=== PATIENT | female | born 1990 | race Caucasian/White ===

== ENCOUNTER 2019-06-08 12:08 | Emergency (ER) | payer OTHER ==
[~2019-06-08] VITALS: Ht 162.6 cm; Wt 49.9 kg
[2019-06-08 12:22] VITALS: BP 105/56
[2019-06-08] MEDS ORDERED: InsuLIN R (HUMAN) 100 UNITS in SODIUM CHL 0.9% 99 ML IV SCH (12:40)
[2019-06-08] MEDS ORDERED: DEXTROSE (50%) 50ML SYRG IV PRN (12:45)
[2019-06-08] MEDS ORDERED: cefTRIAXone 1GM/50ML D5W 50 ML IV ONE (12:45)
[2019-06-08] MEDS ORDERED: SODIUM CHLORIDE 0.9% 1,000 ML IV ONE (12:45)
[2019-06-08 13:04] LABS: Basophils # (auto) 0 uL; Basophils % (auto) 0.4 % (0.0-2.0); Eosinophils # (auto) 0 uL; Eosinophils % (auto) 0.6 % (0.0-7.0); Hemoglobin 14.3 g/dL (12.2-16.2); Lymphocytes # (auto) 2.3 uL; Lymphocytes % (auto) 31.9 % (10.0-50.0); Mean Corpuscular Hgb Conc. 33.9 g/dL (32.0-36.0); Mean Corpuscular Volume 91.5 fL (80.0-100.0); Monocytes # (auto) 0.3 uL; Monocytes % (auto) 4.8 % (0.0-12.0); Neutrophils # (auto) 4.5 uL; Neutrophils % (auto) 62.3 % (37.0-80.0); Nucleated Red Blood Cells % 0.1 %; Platelet Count (auto) 146 10^3/uL (140-450); Red Cell Distribution Width 13.2 % (11.8-14.3); White Blood Cell 7.3 10^3/uL (4.4-10.8)
[2019-06-08 13:23] LABS: Calcium 8.9 mg/dL (8.5-10.1); Potassium 3.6 mmol/L (3.5-5.1)
[2019-06-08 13:25] LABS: Bilirubin, Total 0.3 mg/dL (0.2-1.0)
[2019-06-08] MEDS ORDERED: ACCU-CHEK COMFORT CURVE STRIP VI SCH (13:30)
== END 2019-06-08 14:02 | disposition left against medical advice (07) ==
LOC: ER 12:16
DX: R56.9 Unspecified convulsions (principal); Z53.21 Procedure and treatment not carried out due to patient leaving prior to being seen by health care provider
CPT/HCPCS: 36415; 80053; 84702; 85025

== ENCOUNTER 2021-12-21 01:56 | Emergency (ER) | payer OTHER ==
[~2021-12-21] VITALS: Ht 157.5 cm; Wt 49.9 kg
[2021-12-21 02:01] VITALS: BP 112/58
[2021-12-21 03:04] LABS: Basophils # (auto) 0.4 10 ^3/uL (0-0.2); Basophils % (auto) 5.2 % (0.0-2.0); Eosinophils # (auto) 0 10 ^3/uL (0-0.8); Eosinophils % (auto) 0.5 % (0.0-7.0); Hematocrit 43.5 % (36.0-46.0); Hemoglobin 15.2 g/dL (12.2-16.2); Lymphocytes # (auto) 2.8 10 ^3/uL (0.4-5.4); Lymphocytes % (auto) 40.4 % (10.0-50.0); Mean Corpuscular Hemoglobin 31.4 pg (28.0-32.0); Mean Corpuscular Hgb Conc. 34.9 g/dL (32.0-36.0); Mean Corpuscular Volume 90.1 fL (80.0-100.0); Monocytes # (auto) 0.7 10 ^3/uL (0-1.3); Monocytes % (auto) 10.7 % (0.0-12.0); Neutrophils % (auto) 43.2 % (37.0-80.0); Nucleated Red Blood Cells % 0.1 %; Red Blood Cells 4.83 10^6/uL (4.0-5.20); Red Cell Distribution Width 12.4 % (11.8-14.3)
[2021-12-21 03:28] LABS: Albumin 3.5 g/dL (3.4-5.0); BUN/Creatinine Ratio 6.3; Calcium 9.2 mg/dL (8.5-10.1); Potassium 3.9 mmol/L (3.5-5.1)
[2021-12-21 03:30] LABS: Bilirubin, Total 0.3 mg/dL (0.2-1.0); Total Protein 7.8 g/dL (6.4-8.2)
[2021-12-21 04:17] LABS: Urine Bacteria FEW /hpf (None Seen); Urine Blood Negative /uL (Negative); Urine Specific Gravity 1.009 (1.001-1.035); Urine WBC 1 /hpf (0 - 5)
== END 2021-12-21 05:14 | disposition left against medical advice (07) ==
LOC: ER 01:56 → EDBD 01:56 → ER 05:14
DX: R10.31 Right lower quadrant pain (principal); Z53.21 Procedure and treatment not carried out due to patient leaving prior to being seen by health care provider
CPT/HCPCS: 36415; 80053; 81001; 83690; 84702; 85025

== ENCOUNTER 2023-02-09 13:00 | Emergency (ER) | payer OTHER ==
[~2023-02-09] VITALS: Ht 160 cm; Wt 63.0 kg
[2023-02-09] MEDS ORDERED: SODIUM CHLORIDE 0.9% 1,000 ML IV ONE (13:15)
[2023-02-09] MEDS ORDERED: LORazepam 2MG/ML-1ML VIAL ONE (13:19)
[2023-02-09] MEDS ORDERED: LORazepam 2MG/ML-1ML VIAL IV ONE (13:30)
[2023-02-09 13:44] LABS: Basophils # (auto) 0 10 ^3/uL (0-0.2); Basophils % (auto) 0.6 % (0.0-2.0); Eosinophils # (auto) 0.1 10 ^3/uL (0-0.8); Eosinophils % (auto) 0.8 % (0.0-7.0); Hematocrit 42.1 % (36.0-46.0); Hemoglobin 13.9 g/dL (12.2-16.2); Lymphocytes % (auto) 39.2 % (10.0-50.0); Mean Corpuscular Hemoglobin 30.6 pg (28.0-32.0); Mean Corpuscular Hgb Conc. 32.9 g/dL (32.0-36.0); Mean Corpuscular Volume 92.8 fL (80.0-100.0); Monocytes # (auto) 0.4 10 ^3/uL (0-1.3); Monocytes % (auto) 5.6 % (0.0-12.0); Neutrophils # (auto) 4.2 10 ^3/uL (1.6-8.6); Neutrophils % (auto) 53.8 % (37.0-80.0); Nucleated Red Blood Cells % 0.1 %; Red Blood Cells 4.53 10^6/uL (4.0-5.20); Red Cell Distribution Width 13.2 % (11.8-14.3); White Blood Cell 7.8 10^3/uL (4.4-10.8)
[2023-02-09 14:04] LABS: Albumin 3.9 g/dL (3.4-5.0); Calcium 8.9 mg/dL (8.5-10.1); Potassium 3.9 mmol/L (3.5-5.1)
[2023-02-09 14:07] LABS: BUN/Creatinine Ratio 7.9 (10.0-20.0); Bilirubin, Total 0.4 mg/dL (0.2-1.0); Total Protein 7.8 g/dL (6.4-8.2)
[2023-02-09 16:38] LABS: Urine Bacteria NONE SEEN /hpf (None Seen); Urine Blood 3+ /uL (Negative); Urine Specific Gravity 1.006 (1.001-1.035); Urine WBC 1 /hpf (0 - 5)
[2023-02-09 17:02] LABS: Amphetamine Screen, Urine NEGATIVE (NEGATIVE); Barbiturate Scree,Urine NEGATIVE (NEGATIVE); Benzodiazephine Screen, Urine NEGATIVE (NEGATIVE); Cannabinoid Screen, Urine NEGATIVE (NEGATIVE)
[2023-02-09 17:14] LABS: Alcohol, Urine < 3.0 mg/dL (0-10); Cocaine Screen, Urine NEGATIVE (NEGATIVE); Opiate Scree,Urine NEGATIVE (NEGATIVE); Phencyclidine Screen, Urine NEGATIVE (NEGATIVE)
[2023-02-09] MEDS ORDERED: ACETAMINOPHEN 325 MG TAB PO ONE (21:00)
[2023-02-09 21:27] VITALS: BP 99/60
== END 2023-02-09 21:47 | disposition short-term general hospital (02) ==
LOC: EDBD 13:00 → ER 13:00
DX: G40.A09 Absence epileptic syndrome, not intractable, without status epilepticus (principal); G45.9 Transient cerebral ischemic attack, unspecified; R10.11 Right upper quadrant pain; R47.01 Aphasia; R10.2 Pelvic and perineal pain
CPT/HCPCS: 36415; 70450; 74176; 76705; 80053; 80307; 81001; 81025; 83690; 84702; 85025; 96361; 96365; 96375; 99291; J1953; J2060; J7030; J7060

== ENCOUNTER 2023-02-14 22:42 | Emergency (ER) | payer OTHER ==
[~2023-02-14] VITALS: Ht 160 cm; Wt 59.1 kg
[2023-02-14 23:37] LABS: Basophils # (auto) 0 10 ^3/uL (0-0.2); Basophils % (auto) 0.4 % (0.0-2.0); Eosinophils # (auto) 0.1 10 ^3/uL (0-0.8); Eosinophils % (auto) 0.9 % (0.0-7.0); Hematocrit 39.8 % (36.0-46.0); Hemoglobin 13.6 g/dL (12.2-16.2); Lymphocytes # (auto) 3.4 10 ^3/uL (0.4-5.4); Lymphocytes % (auto) 38.7 % (10.0-50.0); Mean Corpuscular Hemoglobin 31.4 pg (28.0-32.0); Mean Corpuscular Hgb Conc. 34.1 g/dL (32.0-36.0); Mean Corpuscular Volume 92.2 fL (80.0-100.0); Monocytes # (auto) 0.6 10 ^3/uL (0-1.3); Monocytes % (auto) 7.2 % (0.0-12.0); Neutrophils # (auto) 4.6 10 ^3/uL (1.6-8.6); Neutrophils % (auto) 52.8 % (37.0-80.0); Nucleated Red Blood Cells % 0.1 %; Red Blood Cells 4.32 10^6/uL (4.0-5.20); Red Cell Distribution Width 13.2 % (11.8-14.3); White Blood Cell 8.7 10^3/uL (4.4-10.8)
[2023-02-14 23:44] LABS: Albumin 3.7 g/dL (3.4-5.0); BUN/Creatinine Ratio 7.9 (10.0-20.0); Calcium 8.4 mg/dL (8.5-10.1); Magnesium 2.1 mg/dL (1.6-2.6); Potassium 3.7 mmol/L (3.5-5.1)
[2023-02-14 23:47] LABS: Acetaminophen 23.9 ug/mL (10-30); Bilirubin, Total 0.1 mg/dL (0.2-1.0); Salicylate < 1.7 mg/dL (2.8-20.0); Total Protein 7.7 g/dL (6.4-8.2)
[2023-02-14] MEDS ORDERED: LORazepam 2MG/ML-1ML VIAL ONE (23:52)
[2023-02-15] MEDS ORDERED: LORazepam 2MG/ML-1ML VIAL IV ONE
[2023-02-15 10:56] VITALS: BP 104/56
== END 2023-02-15 11:09 | disposition short-term general hospital (02) ==
LOC: EDBD 22:42 → ER 22:42
DX: R56.9 Unspecified convulsions (principal); R73.9 Hyperglycemia, unspecified; E87.8 Other disorders of electrolyte and fluid balance, not elsewhere classified; E83.51 Hypocalcemia; F32.9 Major depressive disorder, single episode, unspecified; Z20.822 Contact with and (suspected) exposure to COVID-19
CPT/HCPCS: 36415; 70450; 80053; 80320; 80329; 83735; 85025; 87426; 96374; 99291; J1953; J2060; J7060

== ENCOUNTER 2024-05-27 14:09 | Inpatient (IN) | payer OTHER ==
[~2024-05-27] VITALS: Ht 170.2 cm; Wt 72.7 kg
[2024-05-27] MEDS: SODIUM CHLORIDE 0.9% 1,000 ML IV ONE ×4 (14:15→14:31)
[2024-05-27 14:30] VITALS: PULSE 130; RESP 14; O2SAT 98
[2024-05-27] MEDS: levETIRAcetam 1000 mg/100ml 100 ML IV ONE (14:37)
[2024-05-27] MEDS: cefTRIAXone 1GM/50ML D5W 50 ML IV ONE (14:43)
[2024-05-27] MEDS: ACETAMINOPHEN 325 MG TAB PO ONE (14:45)
[2024-05-27 15:04] LABS: Basophils # (auto) 0 10 ^3/uL (0-0.2); Basophils % (auto) 0.2 % (0.0-2.0); Eosinophils # (auto) 0 10 ^3/uL (0-0.8); Eosinophils % (auto) 0.2 % (0.0-7.0); Hematocrit 38.4 % (36.0-46.0); Hemoglobin 13.4 g/dL (12.2-16.2); Lymphocytes # (auto) 2.3 10 ^3/uL (0.4-5.4); Lymphocytes % (auto) 16.8 % (10.0-50.0); Mean Corpuscular Hemoglobin 31.8 pg (28.0-32.0); Mean Corpuscular Hgb Conc. 34.8 g/dL (32.0-36.0); Mean Corpuscular Volume 91.4 fL (80.0-100.0); Monocytes # (auto) 0.8 10 ^3/uL (0-1.3); Neutrophils # (auto) 10.6 10 ^3/uL (1.6-8.6); Neutrophils % (auto) 76.8 % (37.0-80.0); Platelet Count (auto) 210 10^3/uL (140-450); Red Cell Distribution Width 12.3 % (11.8-14.3); White Blood Cell 13.8 10^3/uL (4.4-10.8)
[2024-05-27 15:09] LABS: Chloride 110 mmol/L (98-107); Potassium 3.7 mmol/L (3.5-5.1); Sodium 141 mmol/L (136-145)
[2024-05-27 15:10] LABS: Anion Gap 9 (5-15); Calcium 9.5 mg/dL (8.7-10.4); Carbon Dioxide 22 mmol/L (20-31)
[2024-05-27 15:15] LABS: BUN/Creatinine Ratio 7.2 (10.0-20.0); Blood Urea Nitrogen 7 mg/dL (9-23); Glucose 108 mg/dL (74-106)
[2024-05-27 16:30] LABS: Urine Bacteria None Seen /hpf (None Seen)
[2024-05-27 17:13] LABS: Urine Blood Negative /uL (Negative); Urine Clarity Clear (Clear); Urine Color Colorless (Yellow); Urine Protein, UAD Negative (Negative); Urine Specific Gravity 1.004 (1.001-1.035); Urine Urobilinogen Normal (Negative); Urine WBC 1 /hpf (0 - 5)
[2024-05-27 19:35] VITALS: TEMP 98.2
[2024-05-27 20:53] VITALS: PULSE 120; RESP 20; O2SAT 93
[2024-05-27] MEDS ORDERED: DOCUSATE SOD 100 MG CAP PO PRN (22:00)
[2024-05-27] MEDS ORDERED: HYDROcodone-ACET 5/325MG TAB PO PRN (22:00)
[2024-05-27] MEDS ORDERED: ACETAMINOPHEN 325 MG TAB PO PRN (22:00)
[2024-05-27] MEDS ORDERED: ONDANSETRON HCL 4 MG/2 ML VIAL IV PRN (22:00)
[2024-05-27] MEDS: levETIRAcetam 1000 mg/100ml 100 ML IV SCH (22:24)
[2024-05-27] MEDS: SODIUM CHLOR 0.9% PF (SALINE LOCK) 10ML VIAL/SYR IV SCH (22:25)
[2024-05-27] MEDS ORDERED: NITROGLYCERIN 0.4 MG SL TAB SL PRN (23:15)
[2024-05-27] MEDS ORDERED: MORPHINE SULFATE INJ 2 MG/ml SYRG IV PRN (23:15)
[2024-05-28 03:04] LABS: Basophils # (auto) 0 10 ^3/uL (0-0.2); Basophils % (auto) 0.2 % (0.0-2.0); Eosinophils # (auto) 0 10 ^3/uL (0-0.8); Eosinophils % (auto) 0.3 % (0.0-7.0); Lymphocytes # (auto) 3.1 10 ^3/uL (0.4-5.4); Mean Corpuscular Hemoglobin 31.8 pg (28.0-32.0); Mean Corpuscular Volume 90.8 fL (80.0-100.0); Monocytes # (auto) 1.2 10 ^3/uL (0-1.3); Monocytes % (auto) 9.6 % (0.0-12.0); Neutrophils # (auto) 8.1 10 ^3/uL (1.6-8.6); Neutrophils % (auto) 64.9 % (37.0-80.0); Platelet Count (auto) 200 10^3/uL (140-450); Red Blood Cells 4.08 10^6/uL (4.0-5.20); Red Cell Distribution Width 12.3 % (11.8-14.3); White Blood Cell 12.4 10^3/uL (4.4-10.8)
[2024-05-28 03:22] LABS: Alanine Aminotransferase 16 U/L (7-40); Alkaline Phosphatase 97 U/L (46-116); Anion Gap 7 (5-15); Aspartate Aminotransferase 13 U/L (13-40); Bilirubin, Total 0.4 mg/dL (0.2-1.0); Calcium 9.1 mg/dL (8.7-10.4); Carbon Dioxide 22 mmol/L (20-31); Chloride 111 mmol/L (98-107); Glucose 95 mg/dL (74-106); Potassium 3.6 mmol/L (3.5-5.1); Sodium 140 mmol/L (136-145); Total Protein 6.9 g/dL (5.7-8.2)
[2024-05-28 03:42] LABS: BUN/Creatinine Ratio 6.6 (10.0-20.0); Blood Urea Nitrogen < 5 mg/dL (9-23)
[2024-05-28 08:17] VITALS: BP 117/74; PULSE 98; RESP 21; O2SAT 97
[2024-05-28] MEDS ORDERED: cefTRIAXone 1GM/50ML D5W 50 ML IV SCH (09:00)
[2024-05-28] MEDS ORDERED: SODIUM CHLORIDE 0.9% 1,000 ML IV SCH (12:00)
== END 2024-05-28 08:14 | disposition left against medical advice (07) | DRG 101 ==
LOC: EDBD 14:09 → ER 14:09 → TELE 23:07
PROVIDERS: ADMIT Nurse Practitioner Family; ATTEND Nurse Practitioner Family
DX: G40.909 Epilepsy, unspecified, not intractable, without status epilepticus (principal); N39.0 Urinary tract infection, site not specified; D72.829 Elevated white blood cell count, unspecified; Z53.29 Procedure and treatment not carried out because of patient's decision for other reasons; Z91.199 Patient's noncompliance with other medical treatment and regimen due to unspecified reason; Z79.899 Other long term (current) drug therapy
CPT/HCPCS: 36415; 70450; 80048; 80053; 81001; 83605; 84702; 85025; 96365; 96367; 96368; 99291; G0378

== ENCOUNTER 2024-09-14 04:58 | Emergency (ER) | payer OTHER, MEDICAID ==
[~2024-09-14] VITALS: Ht 167.6 cm; Wt 63.6 kg
--- NOTE | 2024-09-14 07:00 | ED.PDOC ---
Psychiatric HPI Comments 34 year old female presents to the ED with chief complaint of anxiety. Patient reports that she has been experiencing recent bouts of depression, anxiety, and some SI for the past few days. Patient relays that she has not attempted to commit suicide in quite a few years now and has no plan as of now. Patient states she is from her , but her children live with her. Patient notes her children are with their father at this time while she is in the ED. Patient reports she is taking Lamictal. Patient denies any HI, VH, AH, or plan. Chief Complaint: Anxiety Time Seen by MD: 06:55 Primary Care Provider: UNKNOWN Reviewed Notes: Nurses Notes, Medications, Allergies Information Source: Patient Mode of Arrival: EMS Severity: Able to Care for Self, Able to Control Self Severity of Pain: None Severity of Mental Status: Moderate Severity of Symptoms: Moderate Timing: Days Duration: Since onset Prehospital treatment: None Presents with: Depression, Anxiety, Suicidal Ideation Ingestion: None Circumstance: None Current substance abuse: None Stressors: Divorce History of: Depression, Anxiety Past Medical History PAST MEDICAL HISTORY: Anxiety, Depression, Seizures Past Medical History (Other): Pseudoseizures Surgical History: Denies all surgeries SUPERVISOR FINISHING History: Denies all SUPERVISOR FINISHING Hx Family History Family History: Reviewed,noncontributory to illness, Unknown Social History Smoker: Non-Smoker Alcohol: Denies ETOH Use Drugs: Denies Drug Use Lives In: Home Constitutional: denies: chills, diaphoresis, fatigue, fever, malaise, sweats, weakness, others EENTM: denies: blurred vision, double vision, ear bleeding, ear discharge, ear drainage, ear pain, ear ringing, eye pain, eye redness, hearing loss, mouth pain, mouth swelling, nasal discharge, nose bleeding, nose congestion, nose pain, photophobia, tearing, throat pain, throat swelling, voice changes, others Respiratory: denies: cough, hemoptysis, orthopnea, SOB at rest, shortness of breath, SOB with excertion, stridor, wheezing, others Cardiovascular: denies: chest pain, dizzy spells, diaphoresis, Dyspnea on exertion, edema, irregular heart beat, left arm pain, lightheadedness, palpitations, PND, syncope, others Gastrointestinal: denies: abdomen distended, abdominal pain, blood streaked bowels, constipated, diarrhea, dysphagia, difficulty swallowing, hematemesis, melena, nausea, poor appetite, poor fluid intake, rectal bleeding, rectal pain, vomiting, others Genitourinary: denies: abnormal vagina bleeding, burning, dyspareunia, dysuria, flank pain, frequency, hematuria, incontinence, pain, , vagina discharge, urgency, others Neurological: denies: dizziness, fainting, headache, left sided numbness, left sided weakness, numbness, paresthesia, pre-existing deficit, right sided numbness, right sided weakness, seizure, speech problems, tingling, tremors, weakness, others Musculoskeletal: denies: back pain, gout, joint pain, joint swelling, muscle pain, muscle stiffness, neck pain, others Integumetry: denies: bruises, change in color, change in hair/nails, dryness, laceration, lesions, lumps, rash, wounds, others Allergic/Immunocompromised: denies: Difficulty Healing, Frequent Infections, Hives, Itching, others Hematologic/Lymphatic: denies: anemia, blood clots, easy bleeding, easy bruising, swollen glands, others Endocrine: denies: excessive hunger, excessive sweating, excessive thirst, excessive urination, flushing, intolerance to cold, intolerance to heat, unexplained weight gain, unexplained weight loss, others Psychiatric: reports: anxiety, depression, suicidal; denies: bipolar disorder, hopeless, panic disorder, schizophrenia, sleepless, others All Other Systems: Reviewed and Negative Physical Exam General Appearance: Moderate Distress, Normal HEENT: Normal ENT Inspection, PERRL/EOMI Neck: Full Range of Motion, Non-Tender, Normal, Normal Inspection Respiratory: Chest Non-Tender, Lungs Clear, No Accessory Muscle Use, No Respiratory Distress, Normal Breath Sounds Cardiovascular: No Edema, No JVD, No Murmur, No Gallop, Normal Peripheral Pulses, Regular Rate/Rhythm Breast Exam: Deferred Gastrointestinal: No Organomegaly, Non Tender, No Pulsatile Mass, Normal Bowel Sounds, Soft Genitalia: Deferred Pelvic: Deferred Rectal: Deferred Extremities: No calf tenderness, Normal capillary refill, Normal inspection, Normal range of motion, Non-tender, No pedal edema Musculoskeletal : Apperance: Normal Neurologic: Alert, analytical laboratory technician II-XII nml as Tested, No Motor Deficits, Normal Affect, Normal Mood, No Sensory Deficits Cerebellar Function: NOT DONE Reflexes: NOT DONE Skin: Dry, Normal Color, Warm Peripheral Pulses: 3+ Radial (R), 3+ Radial (L) Lymphatic: No Adenopathy Was a procedure done? Was a procedure done?: No Psych Differential Dx Psych. Differential Dx: Anxiety, Depression, Suicidal X-Ray, Labs, Meds, VS Vital Signs Date Time Temp Pulse Resp B/P (MAP) Pulse Ox O2 Delivery O2 Flow Rate FiO2 09/14/24 05:05 98.6 130 27 121/71 (88) 100 Patient alert. History of psychiatric illness. She is depressed. Vitals stable. Answering all questions. Moving all extremities. She has not harmed herself. Reviewed her previous history. Medically cleared. Psychiatric evaluation. Time of 1ST Reevaluation: 07:55 Reevaluation 1ST: Improved Patient Education/Counseling: Diagnosis, Treatment Family Education/Counseling: No Family Present Additional Information I reviewed the following notes from patient's past medical encounters: 05/27/24 for seizure disorder The following tests were ordered, and results were reviewed by me: Additional Information was gathered from interviewing the following independent historians: None I reviewed and agreed with the following test results read by other providers: None I discussed treatment and results with medical personnel. Departure 1 Departure Time of Disposition: 07:38 Impression: Primary Impression: Depression Qualified Codes: F32.A - Depression, unspecified Disposition: 30 STILL A PATIENT Condition: Good Critical Care Note Critical Care Time?: No Stability Stability form required: No Heart Score Heart Score: Heart Score Response (Comments) Value History N/A 0 EKG N/A 0 Age N/A 0 Risk Factors N/A 0 Troponin N/A 0 Total 0 I personally scribed for MAYELA TAYLOR MD ([email or web address]) on 09/14/24 at 07:00. Electronically submitted by Noe Oviedo ([email or web address]). I personally scribed for MAYELA TAYLOR MD ([email or web address]) on 09/14/24 at 07:01. E lectronically submitted by Noe Oviedo ([email or web address]). MAYELA TAYLOR MD Sep 14, 2024 07:00
[2024-09-14] MEDS: LORazepam 0.5 MG TAB PO ONE (09:32)
[2024-09-14 09:52] VITALS: PULSE 105; RESP 16; O2SAT 98
--- NOTE | 2024-09-14 10:55 | DVHINCON2 ---
Date of Service if different f: Sep 14, 2024 Consultation ([facility]) Appetite: Poor Appearance: Stated age, Groomed, Clean Psychomotor activity: Restless Behavioral: Cooperative Eye contact: Appropriate Speech: Soft Affect: Mood Congruent Mood: Depressed, Anxious Thought processes: Linear/Goal-directed Thought content: WNL Suicidal ideations: Absent Homicidal ideations: Absent Orientation: Person, Place, Time Memory intact: Recent Intellect: Average Abstractability: WNL Concentration: Adequate Attention: Adequate Judgement: WNL Insight: Fair Vitals Vital Signs Date Time Temp Pulse Resp B/P (MAP) Pulse Ox O2 Delivery O2 Flow Rate FiO2 09/14/24 09:52 105 16 98 Room Air* 0 21 09/14/24 09:51 98.7 113/78 (90) 98.7 Medication adjusted: No Diagnosis: Bipolar disorder Plan : Pt denies suicidal ideation with plan but feeling very depressed, overwhelmed and wants admission to psychiatric facility Recommend transfer to psychiatric facility, she may go voluntary or 5150hold for DTS. Continue current psychotropic medications: Lamictal 100mg po BID History of Present Illness Reason for Consult : anxiety, suicidal thoughts HPI : This is a 34-year-old female with hx of bipolar disorder presents to ED reporting anxiety. Patient was evaluated via telepsychiatry. She reports separation from 3 months ago and she cares for their 3 children alone, her 6-year-old has "autoimmune encephalitis" and requires a lot of care. She is feeling overwhelmed, racing thoughts, dark thoughts. Her daughter also wakes up every few hours and she is unable to sleep. She reports having suicidal thoughts but she knows she should not have these because of her kids. She feels she cannot go home right now and asking for help. She denies homicidal thoughts. She is having depressive symptoms and no trina currently. She denies hx of psychosis and currently denies auditory/visual hallucination or paranoia. She is having little sleep but able to fall asleep. She reports poor appetite. Past Psychiatric History : She denies past psych admissions, 5150 holds or suicide attempts. She does have hx of self harming with cutting but it has been some years ago. She has a psychiatrist at [facility], last follow up a few days ago. She had a therapist appt yesterday, but therapist cancelled. She is prescribed Lamictal 100mg BID for the last 2 years. 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 She denies substance use history. She denies nicotine use. Grandmother had hx of anxiety. STEPHANIA MCKINNEY DNP Sep 14, 2024 10:55
[2024-09-14 15:19] LABS: Urine Bacteria None Seen /hpf (None Seen)
[2024-09-14 15:33] LABS: Basophils # (auto) 0 10 ^3/uL (0-0.2); Basophils % (auto) 0.8 % (0.0-2.0); Eosinophils # (auto) 0.3 10 ^3/uL (0-0.8); Eosinophils % (auto) 4.3 % (0.0-7.0); Hematocrit 46.3 % (36.0-46.0); Hemoglobin 15.5 g/dL (12.2-16.2); Lymphocytes # (auto) 2.9 10 ^3/uL (0.4-5.4); Lymphocytes % (auto) 49.3 % (10.0-50.0); Mean Corpuscular Hemoglobin 31.3 pg (28.0-32.0); Mean Corpuscular Hgb Conc. 33.5 g/dL (32.0-36.0); Mean Corpuscular Volume 93.4 fL (80.0-100.0); Monocytes # (auto) 0.6 10 ^3/uL (0-1.3); Monocytes % (auto) 9.9 % (0.0-12.0); Neutrophils # (auto) 2.1 10 ^3/uL (1.6-8.6); Neutrophils % (auto) 35.7 % (37.0-80.0); Nucleated Red Blood Cells % 0.1 %; Platelet Count (auto) 196 10^3/uL (140-450); Red Blood Cells 4.96 10^6/uL (4.0-5.20); Red Cell Distribution Width 13.8 % (11.8-14.3)
[2024-09-14 15:37] LABS: Potassium 3.8 mmol/L (3.5-5.1); Sodium 140 mmol/L (136-145)
[2024-09-14 15:38] LABS: Carbon Dioxide 23 mmol/L (20-31)
[2024-09-14 15:43] LABS: BUN/Creatinine Ratio 7.9 (10.0-20.0); Glucose 88 mg/dL (74-106)
[2024-09-14 15:53] LABS: Blood Urea Nitrogen 7 mg/dL (9-23); Calcium 10.6 mg/dL (8.7-10.4)
[2024-09-14 15:59] LABS: Anion Gap 10 (5-15); Chloride 107 mmol/L (98-107)
[2024-09-14 16:15] LABS: Urine Blood Negative /uL (Negative); Urine Budding Yeast OCCASIONAL /hpf (None Seen); Urine Clarity Clear (Clear); Urine Color Yellow (Yellow); Urine Mucus FEW (None Seen); Urine Protein, UAD 1+ (Negative); Urine Specific Gravity 1.028 (1.001-1.035); Urine Squamous Epithelial Cell FEW /hpf (<5); Urine Urobilinogen Normal (Negative); Urine WBC 15 /hpf (0 - 5)
[2024-09-14] MEDS: lamoTRIgine 100 MG TAB PO SCH (16:31)
[2024-09-14 17:01] LABS: Amphetamine Screen, Urine Neg (NEGATIVE); Barbiturate Scree,Urine Neg (NEGATIVE); Benzodiazephine Screen, Urine Neg (NEGATIVE); Cannabinoid Screen, Urine Neg (NEGATIVE); Cocaine Screen, Urine Neg (NEGATIVE); Opiate Scree,Urine Neg (NEGATIVE); Phencyclidine Screen, Urine Neg (NEGATIVE)
[2024-09-14 20:00] VITALS: PULSE 91; RESP 14
[2024-09-15 05:30] VITALS: BP 108/70; PULSE 91; RESP 14; TEMP 98.9; O2SAT 99
== END 2024-09-15 05:42 | disposition short-term general hospital (02) ==
LOC: EDBD 04:58 → ER 04:58
DX: F32.A Depression, unspecified (principal); F41.9 Anxiety disorder, unspecified; R56.9 Unspecified convulsions; Z79.899 Other long term (current) drug therapy; Z91.52 Personal history of nonsuicidal self-harm
CPT/HCPCS: 36415; 80048; 80307; 81001; 81025; 85025